=== PATIENT | female | born 1990 | race Caucasian/White ===

== ENCOUNTER 2019-10-15 11:00 | Outpatient (RCR) | payer OTHER, SELFPAY ==
--- NOTE | 2019-08-14 10:14 | PTOPEVAL ---
Addendum entered by Lucy Sharma, PT 08/14/19 11:55: FUNCTIONAL scores with self assessment questionnaire: Lower Extremity Functional score 65 and Quick DASH 71% limitation. Original Note: PHYSICAL THERAPY EVALUATION AND PLAN OF CARE 08-14-2019 The PT evaluation was completed today and plan of treatment is scheduled for 2x/week for 6 weeks. The treatment plan includes aquatic therapy, for the buoyancy effects of the water and ease of movement due to her multiple areas of pain and chronic pain. Thank you for referring this patient to [facility]. Please review, sign, date and return this plan of care JOE. I agree with and certify that the following plan of care is medically necessary. Referring Physician Date Attending Provider: Dr. Robertson- for diagnosis of hypermobility of joints, myalgia, arthralgia Dr. Bass- for diagnosis of B patellar instability *PT Outpatient Evaluation Start: 08/14/19 09:12 Document 08/14/19 09:12 BRAYAN (Rec: 08/14/19 10:14 BRAYAN [id number]) Outpatient Past Medical History Neurological History Hx Migraine Yes: chronic pain, head Hx Seizures Yes: control with meds;warning :side body R trigger, nystagmus Hx Other Neurological Disorders Yes: occipital neuroma- pseudo seizures;trigeminal nerve pain Cardiovascular History Hx Other Cardiac Disorders Yes: cardiac murmur; no meds Respiratory History Hx Asthma Yes Hx Other Respiratory Disorders Yes: smoker Gastrointestinal History Hx Irritable Bowel Yes: ulcers in colon; effects eating-working on meds Hx Other Gastrointestinal Disorders Yes: polyp removed with colonscopy Genitourinary History Hx Urinary Tract Infection Yes: chronic UTI-seeing urologist next week Musculoskeletal History Hx Arthritis Yes: myalgia-unspecified/not fibromyalgia;shear operator following Hx Back Pain Yes: lumbar degeneration; Hx Orthopedic Surgery Yes: L forearm&elbow fx-ORIF; Hx Other Musculoskeletal Disorders Yes: cocyx readjusted ;ARIELLA positive for chonic disease Hematological History Hx Anemia Yes Hx Other Hematological Disorders Yes: vit D deficiency Endocrine History Hx Endocrine Disorders No Significant History HEENT History Hx Other HEENT Disorders Yes: cysts behind & inside ears ;TMJ dyfunction/pain;CT negative Integumentary History Hx Skin Disorders No Significant History Reproductive History Hx Reproductive Disorders No Significant History Evaluation Information Problem Diagnosis hypermobility of joint
--- NOTE | 2019-09-24 15:34 | PTOPEVAL ---
PHYSICAL THERAPY REEVALUATION AND UPDATED PLAN OF CARE 09-24-2019 Ms. Preston has received 7 Physical Therapy sessions from August 14 to today, with treatments on land and in the water. Compared to the initial evaluation: pain rating has decreased slightly at lesser rating and worst rating; functional rating scores are worse for Quick DASH by 9% and LE functional score by 15%; although reported walking and standing tolerance is increased and sleeping tolerance is less; reports she is able to dress herself without assist and doing more light home tasks, but mostly from a sitting position; Her activity tolerance and exercise tolerance has increased. Education for posture and home exercise program is being performed. She has muscle twitching and tightening throughout her body with voluntary movements and exercises, but voluntary movements are without this. PT will continue 2x/week for 3 weeks, on land and in the water, to further increase strength and active mobility and decrease pain. With progression of home exercises. Thank you for referring Joel to [facility]. Please review, sign, date and return this plan of care JOE. I agree with and certify that the following plan of care is medically necessary. Referring Physician Date Attending Provider: Dr. Robertson- for diagnosis of hypermobility of joints, myalgia, arthralgia Dr. Bass- for diagnosis of B patellar instability Document 09/24/19 14:35 BRAYAN (Rec: 09/24/19 15:25 BRAYAN [id number]) Subjective Information Joel reports: to ER with Query Text:As Reported By Patient/ fall Aug 17, due to seizues Family and throwing up stomach acid; can do more chores around house-- make bed, fix light breakfast of toast; can sit in bed to do ordering on line and bills- can do for 3-4 hours in sitting position; to have occipital epidural nerve block by Palomo Peterson dr; ENT, vice president mission integration, ortho appointments have been rescheduled due to coronavirus ;self assessment functional score with Quick Dash is 80% and LE functional scale 80% Pain Assessment Timing of Pain Assessment Timing of Pain Assessment Assessment Pain Scale Pain Scale Used Numeric (1 - 10) Self Report Pain Assessment Bilateral Generalized Reported Pain Level 5 Pain Description Tightness Radicular Pain Location stiff, sore in R upper quadrant-- shoulder, clavicle, ribs;R hip Pain Frequency Chronic Lowest Pain Intensity 5 Greatest Pain Intensity 9 Other Pain Aggravating Factors reports walk/stand tolerance 20-30 min;sleep tolerance 3 hr at time; Other Alleviating Interve
--- NOTE | 2019-10-08 13:38 | PCPTNOTE ---
pt called and canceled due to car troubles;
--- NOTE | 2019-10-15 11:48 | PTOPEVAL ---
PHYSICAL THERAPY DISCHARGE 10-15-2019 Ms. Preston has received 12 Physical Therapy sessions, from August 14 to today. With the self assessment functional questionnaire, compared to the last reeval, she was the same with the LE functional score and the UE/Quick DASH was 4% worse. Although, she reported she is able to perform more home and self care tasks and activity. Compared to the reeval on 09-24-19: strength has increased slightly with active shoulder flexion and hip flexion; single leg standing increased with R and L; pain rating is about the same; reported sleeping tolerance increased; reported dressing and home activity has increased. she is independent with her home exercise program. Thank you for referring Joel Preston to [facility]. Please review, sign, date and return this discharge JOE. I agree with and certify that the following plan of care is medically necessary. Referring Physician Date Attending Provider: Dr. Robertson- for diagnosis of hypermobility of joints, myalgia, arthralgia Shelia Duncan- for diagnosis sof B patellar instability *PT Outpatient Discharge Document 10/15/19 11:12 BRAYAN (Rec: 10/15/19 11:42 BRAYAN [id number]) Subjective Information Joel reports: improved with Query Text:As Reported By Patient/ ability to stand upright, Family posture and walking; general mobility is better; more limber and less tension in body; walking/standing time of 20 minutes; have lifted and carried daughter to her room; doing more tasks, holding things better and gripping more strength; sleeping 3-5 hours at time; can get dressed , put on socks and shoes and put knee brace on herself; can move quicker with activity; had 3 falls recently- collapse due to 2 seizures and 1 pass out; continues to do home exercises and pleased with her improvements; She agreed to discharge from PT. Pain Assessment Timing of Pain Assessment Timing of Pain Assessment Assessment Pain Scale Pain Scale Used Numeric (1 - 10) Self Report Pain Assessment Bilateral Generalized Reported Pain Level 9 Radicular Pain Location ripping pain in R arm constant Pain Frequency Chronic Other Pain Description R neck, trunk/ribs and shoulder pain;searing pain& pulsing pain R sh&elbow Lowest Pain Intensity 6 Greatest Pain Intensity 10 Pain Level Goal 0 Othe
== END 2019-10-16 09:27 | disposition home or self-care (01) ==
LOC: ANHPT 11:00
DX: M24.9 Joint derangement, unspecified (principal); M25.50 Pain in unspecified joint; M79.10 Myalgia, unspecified site; R76.8 Other specified abnormal immunological findings in serum
CPT/HCPCS: 97110; 97113; 97162

== ENCOUNTER 2020-01-06 07:54 | Outpatient (CLI) | payer OTHER, SELFPAY | END 2020-01-06 07:55 | disposition home or self-care (01) | LOC: ANHAUDIO 07:55 | PROVIDERS: Visit Provider Otolaryngology | DX: R42 Dizziness and giddiness (principal) | CPT/HCPCS: 92537; 92540; 92546; 92557; 92567 ==

== ENCOUNTER 2020-07-22 12:30 | Outpatient (CLI) | payer OTHER, SELFPAY ==
--- NOTE | ~2020-07-22 | MMUS_ITS ---
EXAMINATION: MM diagnostic michell BI w luisa, US breast BI complete HISTORY: Palpable bilateral breast lumps. Baseline mammogram. TECHNIQUE: Additional 3-D tomosynthesis images of the breasts were performed and synthetic 2-D images were generated. CAD analysis was submitted and interpreted. High resolution complete bilateral breas t ultrasound was performed. COMPARISON: None BREAST PARENCHYMAL COMPOSITION: The breasts are extremely dense, which lowers the sensitivity of mamm ography FINDINGS: MAMMOGRAPHIC FINDINGS: . There are no suspicious masses, clustered calcifications or architectural distortion in either betito st to suggest malignancy. ULTRASOUND: Complete bilateral breast ultrasound including all 4 quadrants in the subareolar locations demonstrat e normal heterogeneous echotexture without focal solid or cystic mass. IMPRESSION: 1. No mammographic or sonographic evidence for malignancy in either breast. 2. Routine yearly screening mammogram and regular clinical breast examination are recommended. BI-RADS Category 1: Negative Reviewed, dictated and finalized at location A. GER FINANCE IMPRESSION: 1. No mammographic or sonographic evidence for malignancy in either breast. 2. Routine yearly screening mammogram and regular clinical breast examination a re recommended. BI-RADS Category 1: Negative
== END 2020-07-22 12:31 | disposition home or self-care (01) ==
LOC: ANHIMG 12:36
PROVIDERS: PCP Advanced Practice Midwife; Visit Provider Advanced Practice Midwife
DX: N63.10 Unspecified lump in the right breast, unspecified quadrant (principal); N63.20 Unspecified lump in the left breast, unspecified quadrant
CPT/HCPCS: 76641; 77062; 77066; G0279

== ENCOUNTER 2021-06-23 13:56 | Outpatient (CLI) | payer OTHER, SELFPAY ==
--- NOTE | ~2021-06-23 | US_ITS ---
US axilla RT 06/23/2021 14:56 Indication: Pulling sensation in the axilla Procedure: High-resolution ultrasound of the right axilla Comparison: No prior studies for comparison. Findings: Normal heterogeneous echotexture without focal solid or cystic mass. Impression: 1: Normal right axillary ultrasound. No discrete mass. Reviewed, dictated and finalized at location A. LING EQUIPMENT SALES REPRESENTATIVE Impression: 1: Normal right axillary ultrasound. No discrete mass.
== END 2021-06-23 13:57 | disposition home or self-care (01) ==
PROVIDERS: Visit Provider Advanced Practice Midwife
DX: R22.2 Localized swelling, mass and lump, trunk (principal)
CPT/HCPCS: 76882

== ENCOUNTER 2023-06-10 22:39 | Emergency (ER) | payer OTHER, SELFPAY ==
--- NOTE | ~2023-06-10 | XR_ITS ---
EXAMINATION: XR foot RT min 3V DATE: 06/10/2023 23:02 INDICATION: Right foot injury and pain. TECHNIQUE: 4 views of right foot were obtained. COMPARISON: None. FINDINGS: Bone alignment is normal. No fracture. Joint spaces are normal. There is an enthesophyte at posterior aspect of calcaneal tuberosity. IMPRESSION: 1. No fracture. Reviewed, dictated and finalized at location E. ITY OFFICER IMPRESSION: 1. No fracture.
[2023-06-10 22:46] VITALS: BP 110/65; PULSE 85; RESP 17; TEMP 36.7; O2SAT 100
--- NOTE | 2023-06-11 01:13 | ED.LOWEXIN ---
HPI - Extremity Injury (Lower) General Chief Complaint: Extremity Injury, Lower Stated Complaint: Dropped bed frame on right foot Time Seen by Provider: 06/11/23 01:09 Source: patient Mode of arrival: wheelchair Limitations: no limitations History of Present Illness HPI Narrative: This is a 33 year old female that presents to the ER for an injury to the right foot sustained just prior to arrival. Report she dropped a bed frame on her foot. Reports bruising and pain to the area. Denies decreased ROM or numbness. Related Data Allergies Allergy/AdvReac Type Severity Reaction Status Date / Time No Known Allergies Allergy Unknown Verified 08/20/17 15:27 Review of Systems Review of Systems: CONSTITUTIONAL: Denies fever MUSCULOSKELETAL: Reports joint pain, and myalgia. NEUROLOGIC: Denies numbness All systems reviewed & are unremarkable except as noted in HPI and below PMFSH Surgical History Surgical History (Updated 06/11/23 @ 01:21 by Loly Holland PA-C) History of tonsillectomy Social History Social History (Updated 06/11/23 @ 01:22 by Loly Holland PA-C) Substance use: never Exam Narrative: GENERAL: Well-appearing, well-nourished, and in no acute distress. HEAD: Normocephalic, atraumatic. EYES: EOMI. EXTREMITIES: Normal range of motion. No obvious deformity. Normal DP pulse. Normal sensation. Contusion to the right foot dorsal surface with overlying superficial abrasion SKIN: Warm, dry, no rash. NEURO: No focal deficits. Alert and oriented x3. PSYCH: Normal mood and affect Course Course Emergency Course: patient left before receiving full treatment and her discharge papers Vital Signs Vital signs: Vital Signs Temperature 98.1 F 06/10/23 22:46 Pulse Rate 85 06/10/23 22:46 Respiratory Rate 17 06/10/23 22:46 Blood Pressure 110/65 06/10/23 22:46 Pulse Oximetry 100 06/10/23 22:46 Oxygen Delivery Room Air 06/10/23 22:46 Temperature 98.1 F 06/10/23 22:46 Pulse Rate 85 06/10/23 22:46 Respiratory Rate 17 06/10/23 22:46 Blood Pressure 110/65 06/10/23 22:46 Pulse Oximetry 100 06/10/23 22:46 Oxygen Delivery Room Air 06/10/23 22:46 MDM - Extremity Injury (Lower) MDM Narrative Medical decision making narrative: Patient presents to the emergency department after an injury with right foot pain. She is afebrile and nontoxic appearing. She is neurovascularly intact. Right foot x-ray without acute osseous abnormalities. Patient ended up leaving before receiving full treatment and her discharge papers Differential Diagnosis Differential diagnosis: Likely other (fracture of foot, contusion) Imaging Data Radiologist's impression: ITS Impressions Foot X-Ray 06/10/23 23:06 IMPRESSION: 1. No fracture. Critical Care Time Critical Care Time Critical Care Time: No Discharge Plan Discharge Clinical Impression: Contusion Qualifiers: Encounter type: initial encounter Contusion area: foot Laterality: right Qualified Code(s): S90.31XA - Contusion of right foot, initial encounter Patient Disposition: Home, Self-Care Condition: Stable Instructions: Contusion in Adults (ED) Additional Instructions: Return to the ER if you experience fever, redness and swelling of your extremity, numbness or any other symptoms that are concerning to you Wear post-op and use crutches. No weight on the affected leg until able to bear weight without pain. Ice and elevate extremity. Pain medication as needed and directed. Follow up with your doctor for further care. Follow-up/Referrals: Yuan Hill MD [Physician] - UNKNOWN,DOCTOR [Primary Care Provider] -
--- NOTE | 2023-06-11 01:19 | PC.NURSE ---
Patient not in room upon attempting to give medications.
== END 2023-06-11 01:19 | disposition left against medical advice (07) ==
LOC: ANHED 06-11 01:51
PROVIDERS: Emergency Provider Physician Assistant
DX: S90.31XA Contusion of right foot, initial encounter (principal); W20.8XXA Other cause of strike by thrown, projected or falling object, initial encounter
CPT/HCPCS: 73630; 99283